=== PATIENT | female | born 2000 | race Caucasian/White ===

== ENCOUNTER 2025-04-17 09:01 | Day surgery (SDC) | payer OTHER ==
[~2025-04-17] VITALS: Ht 154.9 cm; Wt 71.2 kg
[2025-04-17] MEDS ORDERED: BUPROPION XL150 M1 (09:11)
[2025-04-17] MEDS ORDERED: Midazolam HCL 1 MG/ML 5MLVIAL ONE (10:20)
== END 2025-04-17 11:10 | disposition home or self-care (01) ==
LOC: ORSCSDS 09:01
PROVIDERS: Specialist
PROC: 0DB68ZX Excision of Stomach, Via Natural or Artificial Opening Endoscopic, Diagnostic (ICD-10-PCS; principal; 2025-04-17 10:45)
PROC: 0DB98ZX Excision of Duodenum, Via Natural or Artificial Opening Endoscopic, Diagnostic (ICD-10-PCS; principal; 2025-04-17 10:45)
PROC: 0DJD8ZZ Inspection of Lower Intestinal Tract, Via Natural or Artificial Opening Endoscopic (ICD-10-PCS; principal; 2025-04-17 10:45)
PROC: 0DB58ZX Excision of Esophagus, Via Natural or Artificial Opening Endoscopic, Diagnostic (ICD-10-PCS; principal; 2025-04-17 10:45)
DX: R10.11 Right upper quadrant pain (principal); K64.8 Other hemorrhoids; R19.4 Change in bowel habit; R63.4 Abnormal weight loss; Z83.719 Family history of colon polyps, unspecified
CPT/HCPCS: 88305; 88342; J2250; J2704; J7120